=== PATIENT | male | born 1960 | race Two or more races ===

== ENCOUNTER 2021-02-24 09:29 | Emergency (ER) | payer SELFPAY ==
[~2021-02-24] VITALS: Ht 160 cm; Wt 69.7 kg
[~2021-02-24 09:29] MED LIST: GABA300C10 PO; OMEP-110 PO; TRAM50TA2 PO
[2021-02-24 09:32] VITALS: BP 118/91
--- NOTE | 2021-02-24 09:44 | NUR ---
check airman note: Pt to room from lobby.
== END 2021-02-24 10:21 | disposition home or self-care (01) ==
LOC: ED 10:00
DX: B00.2 Herpesviral gingivostomatitis and pharyngotonsillitis (principal); B34.9 Viral infection, unspecified; K21.9 Gastro-esophageal reflux disease without esophagitis; I25.10 Atherosclerotic heart disease of native coronary artery without angina pectoris; Z90.49 Acquired absence of other specified parts of digestive tract; Z79.899 Other long term (current) drug therapy
CPT/HCPCS: 99283